=== PATIENT | male | born 1980 | race Two or more races ===

== ENCOUNTER 2022-05-12 03:40 | Inpatient (IN) | payer MEDICAID ==
[~2022-05-12] VITALS: Ht 195.6 cm; Wt 110.7 kg
[2022-05-12] MEDS ORDERED: MORPHINE SULFATE 4 MG/ML SYR/VIAL IV ONE (04:00)
[2022-05-12] MEDS ORDERED: SODIUM CHLORIDE 0.9% 1,000 ML IVB ONE (04:00)
[2022-05-12] MEDS ORDERED: ONDANSETRON HCL 4 MG/2 ML VIAL IV ONE (04:00)
[2022-05-12 04:28] LABS: Basophils # (auto) 0.1 10 ^3/uL (0-0.2); Basophils % (auto) 0.7 % (0.0-2.0); Eosinophils # (auto) 0.2 10 ^3/uL (0-0.8); Eosinophils % (auto) 2.4 % (0.0-7.0); Hematocrit 39.2 % (41.0-53.0); Hemoglobin 12.7 g/dL (13.5-17.5); Lymphocytes # (auto) 2.7 10 ^3/uL (0.4-5.4); Lymphocytes % (auto) 32.7 % (10.0-50.0); Mean Corpuscular Hemoglobin 26.8 pg (28.0-32.0); Mean Corpuscular Hgb Conc. 32.4 g/dL (32.0-36.0); Mean Corpuscular Volume 82.8 fL (80.0-100.0); Monocytes # (auto) 0.8 10 ^3/uL (0-1.3); Monocytes % (auto) 9.6 % (0.0-12.0); Neutrophils # (auto) 4.5 10 ^3/uL (1.6-8.6); Neutrophils % (auto) 54.6 % (37.0-80.0); Red Blood Cells 4.74 10^6/uL (4.5-5.90); Red Cell Distribution Width 14.7 % (11.8-14.3); White Blood Cell 8.3 10^3/uL (4.4-10.8)
[2022-05-12 04:42] LABS: Albumin 3.6 g/dL (3.4-5.0); BUN/Creatinine Ratio 7.8; Potassium 3.2 mmol/L (3.5-5.1)
[2022-05-12 04:53] LABS: Urine Bacteria NONE SEEN /hpf (None Seen); Urine Blood Negative /uL (Negative); Urine WBC 2 /hpf (0 - 3)
[2022-05-12 05:05] LABS: Alcohol, Urine < 3.0 mg/dL (0-10); Amphetamine Screen, Urine NEGATIVE (NEGATIVE); Barbiturate Scree,Urine NEGATIVE (NEGATIVE); Benzodiazephine Screen, Urine NEGATIVE (NEGATIVE); Cannabinoid Screen, Urine NEGATIVE (NEGATIVE); Cocaine Screen, Urine NEGATIVE (NEGATIVE); Opiate Scree,Urine NEGATIVE (NEGATIVE); Phencyclidine Screen, Urine NEGATIVE (NEGATIVE)
[2022-05-12 05:09] LABS: Bilirubin, Total 0.2 mg/dL (0.2-1.0); Magnesium 1.8 mg/dL (1.6-2.6); Total Protein 7.9 g/dL (6.4-8.2)
[2022-05-12] MEDS ORDERED: ONDA-144 PO (05:24)
[2022-05-12] MEDS ORDERED: POTASSIUM EFFERVESENT TAB 25 MEQ PO ONE (05:30)
[2022-05-12] MEDS ORDERED: PROCHLORPERAZINE EDISYLATE 5 MG/ML 2ML VIAL IV ONE (06:00)
[2022-05-12] MEDS ORDERED: PANTOPRAZOLE 40 MG/10 ML VIAL INJ IV ONE (08:45)
[2022-05-12] MEDS ORDERED: PROMETHAZINE HCL 25 MG/ML 1ML IV PRN (08:45)
[2022-05-12] MEDS ORDERED: PROMETHAZINE HCL 25 MG/ML 1ML IV ONE (08:45)
[2022-05-12] MEDS ORDERED: hydrALAZINE HCL 20 MG/ML VL IV PRN (08:45)
[2022-05-12] MEDS ORDERED: POTASSIUM CHL 20MEQ/100ML 100 ML IV ONE (09:00)
[2022-05-12] MEDS: LACTATED RINGER'S 1,000 ML IV SCH ×2 (09:17→18:45)
[2022-05-12] MEDS ORDERED: MORPHINE SULFATE INJ 2 MG/ml SYRG IV PRN (10:30)
[2022-05-12 13:00] VITALS: BP 167/97
[2022-05-12] MEDS ORDERED: BISA-51 PO (13:28)
[2022-05-12] MEDS ORDERED: CITA10TA8 PO (13:28)
[2022-05-12] MEDS ORDERED: ALBUAER3 IN (13:28)
[2022-05-12] MEDS ORDERED: QUET300T14 PO (13:28)
[2022-05-12] MEDS ORDERED: AML5T PO (13:28)
[2022-05-12] MEDS ORDERED: BICT1TAB PO (13:28)
[2022-05-12 16:07] LABS: BUN/Creatinine Ratio 7.9; Calcium 8.8 mg/dL (8.5-10.1); Potassium 3.8 mmol/L (3.5-5.1)
[2022-05-12 17:00] VITALS: BP 150/85
[2022-05-12 22:00] VITALS: BP 157/103
[2022-05-13] MEDS: LORazepam 2MG/ML-1ML VIAL IV PRN ×2 (00:10→10:26)
[2022-05-13 05:00] VITALS: BP 139/94
[2022-05-13] MEDS: LACTATED RINGER'S 1,000 ML IV SCH ×2 (05:00→14:45)
[2022-05-13 05:28] LABS: Basophils # (auto) 0.1 10 ^3/uL (0-0.2); Basophils % (auto) 1.1 % (0.0-2.0); Eosinophils # (auto) 0.1 10 ^3/uL (0-0.8); Eosinophils % (auto) 0.4 % (0.0-7.0); Hematocrit 39.3 % (41.0-53.0); Hemoglobin 13.1 g/dL (13.5-17.5); Lymphocytes # (auto) 2.1 10 ^3/uL (0.4-5.4); Lymphocytes % (auto) 16.5 % (10.0-50.0); Mean Corpuscular Hemoglobin 27.3 pg (28.0-32.0); Mean Corpuscular Hgb Conc. 33.3 g/dL (32.0-36.0); Monocytes # (auto) 1.3 10 ^3/uL (0-1.3); Monocytes % (auto) 10.5 % (0.0-12.0); Neutrophils # (auto) 9.1 10 ^3/uL (1.6-8.6); Neutrophils % (auto) 71.5 % (37.0-80.0); Nucleated Red Blood Cells % 0.2 %; Red Blood Cells 4.79 10^6/uL (4.5-5.90); Red Cell Distribution Width 14.8 % (11.8-14.3); White Blood Cell 12.7 10^3/uL (4.4-10.8)
[2022-05-13 06:29] LABS: BUN/Creatinine Ratio 12.6; Bilirubin, Total 0.6 mg/dL (0.2-1.0); Calcium 8.4 mg/dL (8.5-10.1); Potassium 3.4 mmol/L (3.5-5.1); Total Protein 7.9 g/dL (6.4-8.2)
[2022-05-13 06:30] LABS: Albumin 3.3 g/dL (3.4-5.0)
[2022-05-13] MEDS: SUCRALFATE 1 GM TAB PO SCH ×3 (06:50→17:00)
[2022-05-13 09:00] VITALS: BP 139/94
[2022-05-13] MEDS ORDERED: PANTOPRAZOLE 40 MG/10 ML VIAL INJ IV SCH ×2 (10:00→22:00)
[2022-05-13] MEDS ORDERED: OXYCODONE W/ ACETAMINOPHEN 5/325MG TABLET PO PRN (10:45)
[2022-05-13] MEDS ORDERED: SUCR1TAB PO (11:57)
[2022-05-13] MEDS ORDERED: PANT40T PO (11:57)
[2022-05-13 13:00] VITALS: BP_SYST 127; BP_SYST 142; BP_DIAS 76; BP_DIAS 83
[2022-05-13 16:50] VITALS: BP 138/94
[2022-05-13 17:29] VITALS: BP 138/76
[2022-05-15 10:00] LABS: Hepatitis B Surface Antibody Positive (Negative)
[2022-05-15 10:37] LABS: Hepatitis A Total Antibody Positive (Negative)
[2022-05-15 12:18] LABS: Hepatitis C Antibody Negative (Negative)
== END 2022-05-13 17:55 | disposition home or self-care (01) | DRG 249 ==
LOC: EDBD 03:40 → ER 03:40 → OVERFLOW 09:18 → EAST 12:40
PROVIDERS: ADMIT Registered Nurse; ATTEND Hospitalist
DX: K52.9 Noninfective gastroenteritis and colitis, unspecified (principal); K76.0 Fatty (change of) liver, not elsewhere classified; E86.0 Dehydration; E87.6 Hypokalemia; F15.10 Other stimulant abuse, uncomplicated; I10 Essential (primary) hypertension; J45.909 Unspecified asthma, uncomplicated; Z20.822 Contact with and (suspected) exposure to COVID-19; Z21 Asymptomatic human immunodeficiency virus [HIV] infection status
CPT/HCPCS: 36415; 70450; 74176; 76705; 80048; 80053; 80307; 81001; 82150; 83690; 83735; 85025; 86704; 86706; 86708; 86803; 87340; 96361; 96365; 96366; 96375; 96376; C9113; G0378; J2405; J3480

== ENCOUNTER 2022-05-23 12:49 | Inpatient (IN) | payer MEDICAID ==
[~2022-05-23] VITALS: Ht 195.6 cm; Wt 101.8 kg
[~2022-05-23 12:49] MED LIST: ALBUAER3 IN; AML5T PO; BICT1TAB PO; BISA-51 PO; CITA10TA8 PO; ONDA-144 PO; PANT40T PO; QUET300T14 PO; SUCR1TAB PO
[2022-05-23] MEDS ORDERED: SODIUM CHLORIDE 0.9% 1,000 ML IVB ONE (13:00)
[2022-05-23] MEDS ORDERED: PANTOPRAZOLE 40 MG/10 ML VIAL INJ IV ONE (13:00)
[2022-05-23] MEDS ORDERED: PROCHLORPERAZINE EDISYLATE 5 MG/ML 2ML VIAL IV ONE (13:00)
[2022-05-23] MEDS ORDERED: MORPHINE SULFATE 4 MG/ML SYR/VIAL IV ONE (13:00)
[2022-05-23 13:29] LABS: Basophils # (auto) 0.1 10 ^3/uL (0-0.2); Eosinophils # (auto) 0.1 10 ^3/uL (0-0.8); Eosinophils % (auto) 1.2 % (0.0-7.0); Monocytes # (auto) 0.8 10 ^3/uL (0-1.3); Nucleated Red Blood Cells % 0.1 %
[2022-05-23 13:30] LABS: Basophils % (auto) 1.3 % (0.0-2.0); Hematocrit 40.3 % (41.0-53.0); Lymphocytes # (auto) 2.2 10 ^3/uL (0.4-5.4); Lymphocytes % (auto) 20.5 % (10.0-50.0); Mean Corpuscular Hemoglobin 26.6 pg (28.0-32.0); Mean Corpuscular Hgb Conc. 32.4 g/dL (32.0-36.0); Mean Corpuscular Volume 82.3 fL (80.0-100.0); Monocytes % (auto) 7.9 % (0.0-12.0); Neutrophils # (auto) 7.4 10 ^3/uL (1.6-8.6); Neutrophils % (auto) 69.1 % (37.0-80.0); Red Cell Distribution Width 14.7 % (11.8-14.3); White Blood Cell 10.7 10^3/uL (4.4-10.8)
[2022-05-23 13:45] LABS: Albumin 3.8 g/dL (3.4-5.0); Calcium 9.1 mg/dL (8.5-10.1); Potassium 3.8 mmol/L (3.5-5.1)
[2022-05-23 13:49] LABS: BUN/Creatinine Ratio 7.7; Bilirubin, Total 0.1 mg/dL (0.2-1.0); Total Protein 8.2 g/dL (6.4-8.2)
[2022-05-23 18:59] LABS: Urine Bacteria NONE SEEN /hpf (None Seen); Urine Blood TRACE /uL (Negative); Urine Mucus FEW (None Seen); Urine Specific Gravity 1.023 (1.001-1.035); Urine WBC 2 /hpf (0 - 3)
[2022-05-23] MEDS ORDERED: hydrALAZINE HCL 20 MG/ML VL IV PRN (21:45)
[2022-05-23] MEDS ORDERED: PROCHLORPERAZINE EDISYLATE 5 MG/ML 2ML VIAL IV PRN (21:45)
[2022-05-23] MEDS ORDERED: ACETAMINOPHEN 325 MG TAB PO PRN (21:45)
[2022-05-23] MEDS ORDERED: DOCUSATE SOD 100 MG CAP PO PRN (21:45)
[2022-05-23] MEDS ORDERED: MORPHINE SULFATE INJ 2 MG/ml SYRG IV PRN (23:00)
[2022-05-23] MEDS ORDERED: NITROGLYCERIN 0.4 MG SL TAB SL PRN (23:00)
[2022-05-24] VITALS (7 sets, daily range): BP systolic 128–156; BP diastolic 82–92
[2022-05-24] MEDS ORDERED: CITA-77 PO (03:19)
[2022-05-24] MEDS ORDERED: QUET100T47 PO (03:21)
[2022-05-24 05:39] LABS: Basophils # (auto) 0.1 10 ^3/uL (0-0.2); Eosinophils # (auto) 0.1 10 ^3/uL (0-0.8); Eosinophils % (auto) 1.1 % (0.0-7.0); Hemoglobin 12.7 g/dL (13.5-17.5); Neutrophils % (auto) 64.9 % (37.0-80.0); White Blood Cell 10.8 10^3/uL (4.4-10.8)
[2022-05-24 05:41] LABS: Basophils % (auto) 0.9 % (0.0-2.0); Hematocrit 38.5 % (41.0-53.0); Lymphocytes # (auto) 2.4 10 ^3/uL (0.4-5.4); Lymphocytes % (auto) 22.4 % (10.0-50.0); Mean Corpuscular Hemoglobin 26.9 pg (28.0-32.0); Mean Corpuscular Hgb Conc. 32.9 g/dL (32.0-36.0); Mean Corpuscular Volume 81.6 fL (80.0-100.0); Monocytes # (auto) 1.2 10 ^3/uL (0-1.3); Monocytes % (auto) 10.7 % (0.0-12.0); Red Blood Cells 4.71 10^6/uL (4.5-5.90); Red Cell Distribution Width 14.2 % (11.8-14.3)
[2022-05-24 05:57] LABS: Potassium 3.5 mmol/L (3.5-5.1)
[2022-05-24 06:05] LABS: Albumin 3.4 g/dL (3.4-5.0); BUN/Creatinine Ratio 8.9; Bilirubin, Total 0.4 mg/dL (0.2-1.0); Calcium 8.5 mg/dL (8.5-10.1); Total Protein 7.8 g/dL (6.4-8.2)
[2022-05-24] MEDS: PANTOPRAZOLE 40 MG/10 ML VIAL INJ IV SCH (10:49)
[2022-05-24] MEDS ORDERED: BIKTARVY PO SCH (13:04)
[2022-05-24] MEDS: QUEtiapine FUMARATE 100 MG TAB PO SCH (21:10)
[2022-05-25] VITALS (7 sets, daily range): BP systolic 111–138; BP diastolic 61–83
[2022-05-25] MEDS: BIKTARVY PO SCH (06:07)
[2022-05-25] MEDS: CITALOPRAM HYDROBR 20 MG TAB PO SCH (06:07)
[2022-05-25] MEDS: amLODIPine BESYLATE 5 MG TAB PO SCH (06:09)
[2022-05-25] MEDS ORDERED: BIKTARVY PO SCH ×2 (07:00→10:00)
[2022-05-25] MEDS ORDERED: ONDANSETRON ODT 4 MG TAB PO SCH (10:00)
[2022-05-25] MEDS: PANTOPRAZOLE 40 MG/10 ML VIAL INJ IV SCH (10:09)
[2022-05-25] MEDS: QUEtiapine FUMARATE 100 MG TAB PO SCH (21:48)
[2022-05-26 05:00] VITALS: BP 116/71
[2022-05-26 05:17] LABS: Basophils # (auto) 0.1 10 ^3/uL (0-0.2); Eosinophils # (auto) 0.2 10 ^3/uL (0-0.8); Monocytes # (auto) 0.7 10 ^3/uL (0-1.3); Neutrophils # (auto) 2.8 10 ^3/uL (1.6-8.6); Nucleated Red Blood Cells % 0.1 %; Red Cell Distribution Width 14.2 % (11.8-14.3)
[2022-05-26 05:21] LABS: Basophils % (auto) 1.1 % (0.0-2.0); Eosinophils % (auto) 2.8 % (0.0-7.0); Hematocrit 38.2 % (41.0-53.0); Hemoglobin 12.7 g/dL (13.5-17.5); Lymphocytes # (auto) 2.8 10 ^3/uL (0.4-5.4); Mean Corpuscular Hgb Conc. 33.2 g/dL (32.0-36.0); Mean Corpuscular Volume 81.4 fL (80.0-100.0); Monocytes % (auto) 10.7 % (0.0-12.0); Neutrophils % (auto) 42.4 % (37.0-80.0); Red Blood Cells 4.69 10^6/uL (4.5-5.90); White Blood Cell 6.6 10^3/uL (4.4-10.8)
[2022-05-26 05:37] LABS: INR 0.95 (0.9-1.15); Partial Thromboplastin Time 29.5 sec (24.6-33.4)
[2022-05-26 05:39] LABS: Albumin 3.2 g/dL (3.4-5.0); BUN/Creatinine Ratio 14.4; Calcium 8.5 mg/dL (8.5-10.1); Potassium 3.6 mmol/L (3.5-5.1)
[2022-05-26 05:59] LABS: Bilirubin, Total 0.1 mg/dL (0.2-1.0); Total Protein 7.7 g/dL (6.4-8.2)
[2022-05-26] MEDS: CITALOPRAM HYDROBR 20 MG TAB PO SCH (06:22)
[2022-05-26] MEDS: BIKTARVY PO SCH (06:22)
[2022-05-26] MEDS: amLODIPine BESYLATE 5 MG TAB PO SCH (06:23)
[2022-05-26 08:00] VITALS: BP 148/86
[2022-05-26] MEDS ORDERED: ceFAZolin 1GM/50ML 100 ML IV ONE (09:50)
[2022-05-26] MEDS: PANTOPRAZOLE 40 MG/10 ML VIAL INJ IV SCH (09:53)
[2022-05-26] MEDS ORDERED: ROCURONIUM 10MG/ML 10ML VIAL IV ONE (10:01)
[2022-05-26] MEDS ORDERED: MIDAZOLAM HCL 2MG/2ML 2ml VIAL (1mg/ml) ONE (10:01)
[2022-05-26] MEDS ORDERED: fentaNYL CITRATE 5 ML ONE (10:02)
[2022-05-26] MEDS ORDERED: PHENYLEPHRINE HCL 10 MG/ML VL ONE (10:48)
[2022-05-26] MEDS ORDERED: ONDANSETRON HCL 4 MG/2 ML VIAL IV PRN (11:00)
[2022-05-26] MEDS ORDERED: HYDROmorphone HCL 2 MG/ML VL/or syr IV PRN (11:00)
[2022-05-26] MEDS: ROPIVACAINE 0.5% (5MG/ML) 20ML AMPULE IJ ONE ×2 (11:25→13:24)
[2022-05-26] MEDS ORDERED: GLYCOPYRROLATE 0.2 MG/ML 1ML VIAL ONE (11:52)
[2022-05-26] MEDS ORDERED: NEOSTIGMINE 1 MG/ML INJ (10mg/10ML VIAL) ONE (11:52)
[2022-05-26] MEDS: HYDROmorphone HCL 2 MG/ML VL/or syr IV PRN ×2 (12:15→12:30)
[2022-05-26] MEDS: MORPHINE SULFATE INJ 2 MG/ml SYRG IV PRN ×4 (13:08→22:15)
[2022-05-26 20:00] VITALS: BP 148/86
[2022-05-26 22:00] VITALS: BP 154/94
[2022-05-26] MEDS: QUEtiapine FUMARATE 100 MG TAB PO SCH (22:13)
[2022-05-27] MEDS: MORPHINE SULFATE INJ 2 MG/ml SYRG IV PRN ×3 (02:28→13:56)
[2022-05-27] MEDS: ONDANSETRON HCL 4 MG/2 ML VIAL IV PRN ×2 (02:28→13:55)
[2022-05-27 05:00] VITALS: BP 134/88
[2022-05-27] MEDS: CITALOPRAM HYDROBR 20 MG TAB PO SCH (06:36)
[2022-05-27] MEDS: BIKTARVY PO SCH (06:36)
[2022-05-27] MEDS: amLODIPine BESYLATE 5 MG TAB PO SCH (06:36)
[2022-05-27 09:00] VITALS: BP 145/83
[2022-05-27] MEDS: PANTOPRAZOLE 40 MG/10 ML VIAL INJ IV SCH (10:15)
[2022-05-27 13:00] VITALS: BP 136/78
[2022-05-27] MEDS ORDERED: cefTRIAXone 1GM/50ML D5W 50 ML IV ONE (16:15)
[2022-05-27] MEDS ORDERED: HCTZ 25 MG TAB PO ONE (16:15)
[2022-05-27] MEDS ORDERED: metroNIDAZOLE 500 MG TAB PO ONE (16:15)
[2022-05-27 17:22] LABS: Basophils # (auto) 0.1 10 ^3/uL (0-0.2); Hematocrit 40.6 % (41.0-53.0); Hemoglobin 12.9 g/dL (13.5-17.5); Lymphocytes % (auto) 19.7 % (10.0-50.0); Mean Corpuscular Hgb Conc. 31.8 g/dL (32.0-36.0); Monocytes # (auto) 1.2 10 ^3/uL (0-1.3); Red Cell Distribution Width 14.4 % (11.8-14.3)
[2022-05-27 17:23] LABS: Basophils % (auto) 0.7 % (0.0-2.0); Eosinophils # (auto) 0 10 ^3/uL (0-0.8); Eosinophils % (auto) 0.4 % (0.0-7.0); Mean Corpuscular Hemoglobin 26.5 pg (28.0-32.0); Mean Corpuscular Volume 83.3 fL (80.0-100.0); Monocytes % (auto) 11.8 % (0.0-12.0); Neutrophils % (auto) 67.4 % (37.0-80.0); Red Blood Cells 4.88 10^6/uL (4.5-5.90); White Blood Cell 10.4 10^3/uL (4.4-10.8)
[2022-05-27 17:39] LABS: Albumin 3.4 g/dL (3.4-5.0); BUN/Creatinine Ratio 13.6; Calcium 8.8 mg/dL (8.5-10.1)
[2022-05-27 17:43] LABS: Bilirubin, Total 0.6 mg/dL (0.2-1.0)
[2022-05-27] MEDS: HYDROcodone-ACET 5/325MG TAB PO PRN (19:08)
[2022-05-27 20:00] VITALS: BP 145/92
[2022-05-27 22:00] VITALS: BP 145/92
[2022-05-27] MEDS: QUEtiapine FUMARATE 100 MG TAB PO SCH (22:15)
[2022-05-27] MEDS: metroNIDAZOLE 500 MG TAB PO SCH (22:15)
[2022-05-27] MEDS: TEMAZEPAM 15 MG CAP PO PRN (22:15)
[2022-05-28 05:00] VITALS: BP 129/81
[2022-05-28] MEDS: ONDANSETRON HCL 4 MG/2 ML VIAL IV PRN (06:02)
[2022-05-28] MEDS: HYDROcodone-ACET 5/325MG TAB PO PRN ×3 (06:03→20:38)
[2022-05-28] MEDS: metroNIDAZOLE 500 MG TAB PO SCH ×3 (06:25→22:08)
[2022-05-28] MEDS: CITALOPRAM HYDROBR 20 MG TAB PO SCH (06:30)
[2022-05-28] MEDS: BIKTARVY PO SCH (06:30)
[2022-05-28 08:00] VITALS: BP 127/81
[2022-05-28] MEDS: PANTOPRAZOLE 40 MG/10 ML VIAL INJ IV SCH (09:31)
[2022-05-28] MEDS: cefTRIAXone 1GM/50ML D5W 50 ML IV SCH (09:31)
[2022-05-28] MEDS: HCTZ 25 MG TAB PO SCH (09:32)
[2022-05-28 10:41] LABS: Basophils # (auto) 0.1 10 ^3/uL (0-0.2); Eosinophils # (auto) 0.1 10 ^3/uL (0-0.8); Monocytes # (auto) 1.5 10 ^3/uL (0-1.3)
[2022-05-28 10:44] LABS: Eosinophils % (auto) 0.5 % (0.0-7.0); Hematocrit 37.4 % (41.0-53.0); Lymphocytes # (auto) 2.4 10 ^3/uL (0.4-5.4); Lymphocytes % (auto) 23.5 % (10.0-50.0); Mean Corpuscular Hemoglobin 26.7 pg (28.0-32.0); Mean Corpuscular Hgb Conc. 32.2 g/dL (32.0-36.0); Mean Corpuscular Volume 82.9 fL (80.0-100.0); Monocytes % (auto) 14.5 % (0.0-12.0); Neutrophils # (auto) 6.1 10 ^3/uL (1.6-8.6); Neutrophils % (auto) 60.5 % (37.0-80.0); Red Blood Cells 4.51 10^6/uL (4.5-5.90); Red Cell Distribution Width 14.3 % (11.8-14.3)
[2022-05-28 10:49] LABS: Potassium 3.9 mmol/L (3.5-5.1)
[2022-05-28 11:01] LABS: Albumin 3.1 g/dL (3.4-5.0); BUN/Creatinine Ratio 13.7; Bilirubin, Total 0.6 mg/dL (0.2-1.0); Calcium 8.7 mg/dL (8.5-10.1); Total Protein 7.3 g/dL (6.4-8.2)
[2022-05-28 13:51] VITALS: BP 114/68
[2022-05-28 16:53] VITALS: BP 124/80
[2022-05-28 22:00] VITALS: BP 124/81
[2022-05-28] MEDS: QUEtiapine FUMARATE 100 MG TAB PO SCH (22:08)
[2022-05-28] MEDS: FAMOTIDINE 20 MG TAB PO SCH (22:08)
[2022-05-28] MEDS: TEMAZEPAM 15 MG CAP PO PRN (22:39)
[2022-05-29 05:00] VITALS: BP 120/75
[2022-05-29] MEDS: metroNIDAZOLE 500 MG TAB PO SCH ×3 (07:00→21:40)
[2022-05-29] MEDS: CITALOPRAM HYDROBR 20 MG TAB PO SCH (07:00)
[2022-05-29] MEDS: BIKTARVY PO SCH (07:01)
[2022-05-29 09:00] VITALS: BP 122/79
[2022-05-29] MEDS: cefTRIAXone 1GM/50ML D5W 50 ML IV SCH (10:01)
[2022-05-29] MEDS: ONDANSETRON HCL 4 MG/2 ML VIAL IV PRN (10:02)
[2022-05-29] MEDS: HYDROcodone-ACET 5/325MG TAB PO PRN ×2 (10:04→21:40)
[2022-05-29] MEDS: HCTZ 25 MG TAB PO SCH (10:06)
[2022-05-29] MEDS: FAMOTIDINE 20 MG TAB PO SCH ×2 (10:06→21:38)
[2022-05-29 10:19] LABS: Albumin 3.3 g/dL (3.4-5.0); Calcium 9.3 mg/dL (8.5-10.1); Potassium 3.7 mmol/L (3.5-5.1)
[2022-05-29 10:24] LABS: BUN/Creatinine Ratio 13.7; Bilirubin, Direct 0.2 mg/dL (0-0.2); Bilirubin, Total 0.6 mg/dL (0.2-1.0); Total Protein 7.7 g/dL (6.4-8.2)
[2022-05-29 13:00] VITALS: BP 123/77
[2022-05-29 16:49] VITALS: BP 139/89
[2022-05-29] MEDS: QUEtiapine FUMARATE 100 MG TAB PO SCH (21:41)
[2022-05-29 22:00] VITALS: BP 130/71
[2022-05-30 05:00] VITALS: BP 124/78
[2022-05-30] MEDS: CITALOPRAM HYDROBR 20 MG TAB PO SCH (07:08)
[2022-05-30] MEDS: metroNIDAZOLE 500 MG TAB PO SCH ×3 (07:08→22:02)
[2022-05-30] MEDS: BIKTARVY PO SCH (07:09)
[2022-05-30 07:32] LABS: Potassium 4.1 mmol/L (3.5-5.1)
[2022-05-30 07:39] LABS: Albumin 3.3 g/dL (3.4-5.0); Bilirubin, Total 0.4 mg/dL (0.2-1.0); Calcium 8.9 mg/dL (8.5-10.1); Total Protein 7.7 g/dL (6.4-8.2)
[2022-05-30] MEDS: cefTRIAXone 1GM/50ML D5W 50 ML IV SCH (09:05)
[2022-05-30] MEDS: HCTZ 25 MG TAB PO SCH (10:35)
[2022-05-30] MEDS: FAMOTIDINE 20 MG TAB PO SCH ×2 (10:36→22:00)
[2022-05-30 13:00] VITALS: BP 125/83
[2022-05-30 17:00] VITALS: BP 107/8
[2022-05-30 22:00] VITALS: BP 124/73
[2022-05-30] MEDS: QUEtiapine FUMARATE 100 MG TAB PO SCH (22:00)
[2022-05-30] MEDS: TEMAZEPAM 15 MG CAP PO PRN (22:02)
[2022-05-31] MEDS: HYDROcodone-ACET 5/325MG TAB PO PRN ×2 (01:58→13:43)
[2022-05-31 05:24] VITALS: BP 124/83
[2022-05-31] MEDS: metroNIDAZOLE 500 MG TAB PO SCH ×2 (06:19→14:00)
[2022-05-31] MEDS: BIKTARVY PO SCH (06:19)
[2022-05-31] MEDS: CITALOPRAM HYDROBR 20 MG TAB PO SCH (06:19)
[2022-05-31] MEDS: cefTRIAXone 1GM/50ML D5W 50 ML IV SCH (09:14)
[2022-05-31 09:19] VITALS: BP 128/77
[2022-05-31] MEDS: HCTZ 25 MG TAB PO SCH (09:32)
[2022-05-31] MEDS: FAMOTIDINE 20 MG TAB PO SCH (09:33)
[2022-05-31] MEDS ORDERED: LEVO500T31 PO (09:49)
[2022-05-31] MEDS ORDERED: HYDR-4902 PO (09:49)
[2022-05-31] MEDS ORDERED: METR500T PO (09:49)
[2022-05-31 12:59] VITALS: BP 125/81
[2023-05-26] MEDS ORDERED: SUCCINYLCHOLINE 20mg/ml 100mg/5ml SYRINGE IV ONE (12:39)
== END 2022-05-31 14:12 | disposition home or self-care (01) | DRG 263 ==
LOC: EDBD 12:49 → ER 12:49 → OVERFLOW 22:58 → WEST WING 23:49
PROVIDERS: ADMIT Nurse Practitioner Family; ATTEND Family Medicine
PROC: 0FT44ZZ Resection of Gallbladder, Percutaneous Endoscopic Approach (ICD-10-PCS; principal; 2022-05-26 10:03)
DX: K80.00 Calculus of gallbladder with acute cholecystitis without obstruction (principal); F41.9 Anxiety disorder, unspecified; R74.01 Elevation of levels of liver transaminase levels; I10 Essential (primary) hypertension; K21.9 Gastro-esophageal reflux disease without esophagitis; Z20.822 Contact with and (suspected) exposure to COVID-19
CPT/HCPCS: 36415; 71045; 74181; 76705; 80053; 80076; 81001; 82150; 83690; 85025; 85610; 85730; 86850; 86900; 86901; 87081; 93005; 96361; 96374; 96375; C9113; G0378; J0690; J0696; J2250; J2405